=== PATIENT | female | born 1975 | race Two or more races ===

== ENCOUNTER 2021-03-30 17:47 | Emergency (ER) | payer SELFPAY ==
[~2021-03-30] VITALS: Ht 162.6 cm; Wt 81.6 kg
--- NOTE | 2021-03-30 17:50 | NUR ---
BIBRA 89 FROM HOME C/O CHEST PRESSURE RADIATES TO LEFT ARM STARTED 1 AND 1/2 HR RECORD CENTER SPECIALIST. 3 SPRAYS OF NTG AND ASPIRIN 324MG PO GIVEN RECORD CENTER SPECIALIST. PATIENT IS STILL C/O CHEST PRESSURE AFTER THE MEDICATIONS, PS 6/10. PATIENT IS AMBULATORY TO RESTROOM. NO DISTRESS NOTED. ATTACHED TO THE AUDIO VISUAL AIDS DIRECTOR.
--- NOTE | 2021-03-30 18:41 | NUR ---
REFUSING CHEST XRAY, PT STS SHE HAD IT TWO DAYS AGO. DR. MASON MADE AWARE
[2021-03-30 19:03] LABS: BASOPHILS # (AUTO) 0.1 /CMM (0.0-0.2); BASOPHILS % (AUTO) 0.9 % (0.0-2.0); EOSINOPHILS % (AUTO) 3.1 % (0.0-6.0); HEMATOCRIT 43 % (33-45); HEMOGLOBIN 14.4 g/dL (11.5-14.8); LYMPHOCYTES # (AUTO) 2.2 /CMM (0.8-4.8); LYMPHOCYTES % (AUTO) 24.9 % (20.0-44.0); MEAN CORPUSCULAR HGB CONC 34 g/dl (31.0-36.0); MEAN CORPUSCULAR VOLUME 91 fL (82-100); MONOCYTES # (AUTO) 0.9 /CMM (0.1-1.30); MONOCYTES % (AUTO) 10.5 % (2.0-12.0); NEUTROPHILS # (AUTO) 5.2 /CMM (1.8-8.9); NEUTROPHILS % (AUTO) 60.6 % (43.0-81.0); PLATELET COUNT (AUTO) 297 /CMM (150-450); RED BLOOD CELL COUNT(AUTO) 4.71 MIL/uL (4.0-5.2); WHITE BLOOD COUNT (AUTO) 8.6 K/uL (4.3-11.0)
[2021-03-30 19:15] LABS: CALCIUM, SERUM 8.7 mg/dL (8.5-10.1); CARBON DIOXIDE 26 mmol/L (21-32); CHLORIDE 101 mmol/L (98-107); CREATININE 0.8 mg/dL (0.6-1.3); GLUCOSE 102 mg/dL (74-106); POTASSIUM 4.3 mmol/L (3.5-5.1); SODIUM SERUM 137 mmol/L (136-145); UREA NITROGEN, BLOOD 13 mg/dL (7-18)
[2021-03-30 19:39] LABS: MAGNESIUM 2.2 mg/dL (1.8-2.4)
--- NOTE | 2021-03-30 20:43 | NUR ---
Patient discharged to home in stable condition. Written and verbal after care instructions given. Patient verbalizes understanding of instruction. IV removed. Catheter intact and site benign. Pressure and 4x4 applied to site. No bleeding noted.
[2021-03-30 21:15] VITALS: BP 121/75
== END 2021-03-30 21:15 | disposition home or self-care (01) ==
LOC: ER 17:49
DX: R00.2 Palpitations (principal); E78.5 Hyperlipidemia, unspecified
CPT/HCPCS: 36415; 80048-TC; 83735-TC; 84484-TC; 84702-TC; 85025-TC